=== PATIENT | male | born 1975 | race Caucasian/White ===

== ENCOUNTER 2016-11-21 04:48 | Emergency (ER) | payer BC, OTHER ==
[2016-11-21 05:00] VITALS: BP 123/61
--- NOTE | 2016-11-21 05:05 | EDM.PDOC ---
ED HPI GENERAL MEDICAL PROBLEM - General Chief Complaint: Upper Extremity Injury/Pain Stated Complaint: ARM AND ANKLE PAIN. TREE FELL ON HIM. WC Time Seen by Provider: 11/21/16 04:55 Source of Information: Reports: Patient History Limitations: Reports: No Limitations - History of Present Illness INITIAL COMMENTS - FREE TEXT/NARRATIVE: This 41 yo male patient reports to the ED with right elbow and right ankle pain. 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 The patient reports the tree hit him about 2 hours ago. The patient reports his ankle feels better now, but his elbow continues to be painful. Onset: Today Onset Date: 11/21/16 Onset Time: 03:00 Duration: Hour(s): (2), Constant Location: Reports: Upper Extremity, Right, Lower Extremity, Right Quality: Reports: Ache, Dull Severity: Moderate Improves with: Reports: Rest Worsens with: Reports: Movement Context: Reports: Trauma Associated Symptoms: Reports: No Other Symptoms - Related Data Allergies Allergy/AdvReac Type Severity Reaction Status Date / Time No Known Allergies Allergy Verified 11/21/16 05:02 Home Meds: Home Meds . [No Known Home Meds] 11/21/16 [History] Review of Systems - Review of Systems Review Of Systems: ROS reveals no pertinent complaints other than HPI. ED EXAM, GENERAL - Physical Exam Exam: See Below Exam Limited By: No Limitations General Appearance: Alert, WD/WN, Mild Distress Eye Exam: Bilateral Eye: EOMI, Normal Inspection, PERRL Ears: Normal External Exam, Normal Canal, Hearing Grossly Normal, Normal TMs Nose: Normal Inspection, Normal Mucosa, No Blood Throat/Mouth: Normal Inspection, Normal Lips, Normal Teeth, Normal Gums, Normal Oropharynx, Normal Voice, No Airway Compromise Head: Atraumatic, Normocephalic Neck: Normal Inspection, Supple, Non-Tender, Full Range of Motion Respiratory/Chest: No Respiratory Distress, Lungs Clear, Normal Breath Sounds, No Accessory Muscle Use, Chest Non-Tender Cardiovascular: Normal Peripheral Pulses, Regular Rate, Rhythm, No Edema, No Gallop, No JVD, No Murmur, No Rub GI/Abdominal: Normal Bowel Sounds, Soft, Non-Tender, No Organomegaly, No Distention, No Abnormal Bruit, No Mass (Male) Exam: Deferred Rectal (Males) Exam: Deferred Back Exam: Full Range of Motion Extremities: Limited Range of Motion (right elbow) Neurological: Alert, Oriented, CN II-XII Intact, Normal Cognition, Normal Gait, Normal Reflexes, No Motor/Sensory Deficits Psychiatric: Normal Affect, Normal Mood Skin Exam: Warm, Dry, Intact, Normal Color, No Rash Lymphatic: No Adenopathy Course - Vital Signs Last Recorded V/S: Last Vital Signs Temp 35.6 C 11/21/16 04:51 Pulse 79 11/21/16 04:51 Resp 17 11/21/16 04:51 BP 123/61 11/21/16 04:51 Pulse Ox 100 11/21/16 04:51 - Orders/Labs/Meds Orders: Active Orders 24 hr Category Date Time Status Elbow Min 3V Rt [CR] Urgent Exams 11/21/16 04:59 Ordered Departure - Departure Time of Disposition: 05:40 Disposition: Home, Self-Care 01 Condition: fair Clinical Impression: Strain of right elbow Qualifiers: Encounter type: initial encounter Qualified Code(s): S56.911A - Strain of unspecified muscles, fascia and tendons at forearm level, right arm, initial encounter Contusion of right elbow Qualifiers: Encounter type: initial encounter Qualified Code(s): S50.01XA - Contusion of right elbow, initial encounter - Discharge Information Instructions: Elbow Contusion, [id number] Forms: ED Department Discharge Care Plan Goals: The patient was advised of the examination and x-ray results during the visit. The patient was encouraged to rest, ice and elevate his right elbow over the next 24-48 hours. If the patient has any additional symptoms or concerns, the patient should follow-up with his primary care facility or return to the emergency department. - My Orders Last 24 Hours: My Active Orders 11/21/16 04:59 Elbow Min 3V Rt [CR] Urgent - Assessment/Plan Last 24 Hours: My Active Orders 11/21/16 04:59 Elbow Min 3V Rt [CR] Urgent
== END 2016-11-21 05:54 | disposition home or self-care (01) ==
LOC: DL.ED 04:48
DX: S56.911A Strain of unspecified muscles, fascia and tendons at forearm level, right arm, initial encounter (principal); S50.01XA Contusion of right elbow, initial encounter; W22.8XXA Striking against or struck by other objects, initial encounter; Y99.0 Civilian activity done for income or pay
CPT/HCPCS: 73080-RT; 99283

== ENCOUNTER 2019-06-12 20:46 | Emergency (ER) | payer BC, OTHER ==
[2019-06-12] MEDS ORDERED: Ondansetron 4 MG Tab.DIS PO ONE (20:47)
[2019-06-12 20:55] VITALS: BP 138/74; PULSE 119
[2019-06-12] MEDS ORDERED: Ondansetron 4 MG/2 ML SDV IV ONE (21:16)
[2019-06-12] MEDS ORDERED: Acetaminophen 325 MG Tab PO ONE (21:31)
--- NOTE | 2019-06-12 21:55 | EDM.PDOC ---
ED HPI GENERAL MEDICAL PROBLEM - General Chief Complaint: Head Injury Stated Complaint: SMACKED HIS HEAD ON THE ICE Time Seen by Provider: 06/12/19 20:50 Source of Information: Reports: Patient, Family, Other History Limitations: Reports: No Limitations - History of Present Illness INITIAL COMMENTS - FREE TEXT/NARRATIVE: ED per w/c at [employer], slipped on ice hit head loss of consciousness for about one minute. Cant remember falling now, c/o being dizzy. legs weak initially after fall. . Head Pain Score (Numeric/FACES): 7 - Related Data Allergies Allergy/AdvReac Type Severity Reaction Status Date / Time No Known Allergies Allergy Verified 06/12/19 20:55 Home Meds: Home Meds . [No Known Home Meds] 11/21/16 [History] Past Medical History - Past Health History Medical/Surgical History: Denies Medical/Surgical History - Past Surgical History GI Surgical History: Reports: Hernia Repair/Other Musculoskeletal Surgical History: Reports: Other (See Below) Other Musculoskeletal Surgeries/Procedures:: ACL repair Social & Family History - Family History Family Medical History: Noncontributory - Tobacco Use Smoking Status *Q: Never Smoker Second Hand Smoke Exposure: No - Caffeine Use Caffeine Use: Reports: None - Recreational Drug Use Recreational Drug Use: No - Living Situation & Occupation Occupation: Employed (works for [employer]) ED ROS GENERAL - Review of Systems Review Of Systems: Comprehensive ROS is negative, except as noted in HPI. ED EXAM, HEAD INJURY - Physical Exam Exam: See Below Exam Limited By: No Limitations General Appearance: Alert, No Apparent Distress, Obese Head: Normocephalic, Scalp Tenderness (right posterior parietal). No: Hinson's Sign, Raccoon Eyes Nexus Criteria: Altered Level of Consciousness. No: Posterior, Midline Cervical Tenderness, Evidence of Intoxication, Focal Neurological Deficit, Painful Distraction Injuries Eyes: Bilateral Eye: EOMI, PERRL (3) Ears: Normal External Exam Nose: Normal Inspection Throat/Mouth: Normal Inspection, Normal Lips, Normal Voice, Other (mild bilateral jaw tenderness greater right posterior mandible.) Neck: Non-Tender, Full Range of Motion Respiratory: No Respiratory Distress, Lungs Clear, Normal Breath Sounds Cardiovascular: Normal Peripheral Pulses, Regular Rate, Rhythm GI/Abdominal Exam: Normal Bowel Sounds, Soft Extremities: Normal Range of Motion Neurologic: Alert, Normal Mood/Affect, Oriented x 3 Skin: Normal Color, Warm/Dry - Nancy Coma Score Best Eye Response (Mcdade): (4) Open Spontaneously Best Verbal Response (Mcdade): (5) Oriented Best Motor Response (Mcdade): (6) Obeys Commands Course - Vital Signs Last Recorded V/S: Last Vital Signs Temp 97 F 06/12/19 20:51 Pulse 119 H 06/12/19 20:51 Resp 18 06/12/19 20:51 BP 138/74 06/12/19 20:51 Pulse Ox 93 L 06/12/19 20:51 - Orders/Labs/Meds Meds: Medications Discontinued Medications Generic Name Dose Route Start Last Admin Trade Name César PRN Reason Stop Dose Admin Acetaminophen 650 mg 06/12/19 21:31 06/12/19 21:36 Tylenol PO 06/12/19 21:32 650 mg NOW ONE Administration Ondansetron HCl 4 mg 06/12/19 21:16 06/12/19 21:23 Zofran IV 06/12/19 21:17 4 mg ONETIME ONE Administration Ondansetron HCl Confirm 06/12/19 21:57 Zofran Odt Administered 06/12/19 21:58 Dose 12 mg .ROUTE .STK-MED ONE - Radiology Interpretation Free Text/Narrative:: head CT negative Cervical Negative - Re-Assessments/Exams Free Text/Narrative Re-Assessment/Exam: 06/14/19 04:59 Emesis x1 upon return from CT. Slight dizziness with movement. Gait steady. Continues poor recall of incident. Conversation appropriate. Discharge instructions reviewed with and patient. Off work one week Recheck in clinic end of week, sooner if symptoms worsen. Departure - Departure Time of Disposition: 21:50 Disposition: Home, Self-Care 01 Condition: Good Clinical Impression: Concussion with less than 1 hour loss of consciousness - Discharge Information *PRESCRIPTION DRUG MONITORING PROGRAM REVIEWED*: Not Applicable *COPY OF PRESCRIPTION DRUG MONITORING REPORT IN PATIENT ROSE MARY: Not Applicable Instructions: Concussion, Adult, [id number], Head Injury, Adult, [id number] Referrals: Deena Ocasio [Primary Care Provider] - Forms: ED Department Discharge Additional Instructions: No work this week light activity, rest 24 -48 hours, slow advance light soft diet tylenol every 4-6 hours as needed for discomfort zofran 4mg ODT one every 4 hours as needed for nausea or vomiting head injury instructions clinic recheck or Wednesday Sepsis Event Note - Evaluation Sepsis Screening Result: No Definite Risk - Focused Exam Date Exam was Performed: 06/14/19 Time Exam was Performed: 04:55
[2019-06-12] MEDS ORDERED: Ondansetron 4 MG Tab.DIS ONE (21:57)
== END 2019-06-12 22:05 | disposition home or self-care (01) ==
LOC: DL.ED 20:46
DX: S06.0X9A Concussion with loss of consciousness of unspecified duration, initial encounter (principal); W00.0XXA Fall on same level due to ice and snow, initial encounter
CPT/HCPCS: 70450; 72125; 96374; 99284; A9270; J2405

== ENCOUNTER 2021-04-12 11:55 | Emergency (ER) | payer BC ==
[2021-04-12 12:14] VITALS: BP 138/82; PULSE 93
--- NOTE | 2021-04-12 13:18 | EDM.PDOC ---
Scribed by Mae Schofield 04/12/21 1317 for Elsie Starkey MD ED HPI GENERAL MEDICAL PROBLEM - General Chief Complaint: General Stated Complaint: SICK SINCE WED SOB JANETH [phone] Time Seen by Provider: 04/12/21 13:10 Source of Information: Reports: Patient, RN, RN Notes Reviewed History Limitations: Reports: No Limitations - History of Present Illness INITIAL COMMENTS - FREE TEXT/NARRATIVE: Patient is here with cold-liked symptoms that started 7 days ago. He reports cough, body aches, weakness and chills. He has not had his COVID vaccine. No known exposure to COVID. He doesn't feel that anything is helping. Symptoms have been constant, not better or worse. 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 - Related Data Allergies Allergy/AdvReac Type Severity Reaction Status Date / Time No Known Allergies Allergy Verified 04/12/21 12:14 Home Meds: Home Meds Ibuprofen 600 mg PO Q6H PRN 04/12/21 [History] Past Medical History - Past Health History Medical/Surgical History: Denies Medical/Surgical History - Infectious Disease History Infectious Disease History: Reports: None - Past Surgical History GI Surgical History: Reports: Hernia Repair/Other Musculoskeletal Surgical History: Reports: Other (See Below) Other Musculoskeletal Surgeries/Procedures:: ACL repair Social & Family History - Family History Family Medical History: No Pertinent Family History - Tobacco Use Tobacco Use Status *Q: Never Tobacco User - Caffeine Use Caffeine Use: Reports: None - Recreational Drug Use Recreational Drug Use: No - Living Situation & Occupation Occupation: Employed (works for [employer]) ED ROS GENERAL - Review of Systems Review Of Systems: Comprehensive ROS is negative, except as noted in HPI. ED EXAM, GENERAL - Physical Exam Exam: See Below Exam Limited By: No Limitations General Appearance: Alert, WD/WN, No Apparent Distress Eye Exam: Bilateral Eye: EOMI, Normal Inspection, PERRL Ears: Normal External Exam, Normal Canal, Hearing Grossly Normal, Normal TMs Nose: Normal Inspection, Normal Mucosa, No Blood Throat/Mouth: Normal Inspection, Normal Lips, Normal Teeth, Normal Gums, Normal Oropharynx, Normal Voice, No Airway Compromise Head: Atraumatic, Normocephalic Neck: Normal Inspection, Supple, Non-Tender, Full Range of Motion Respiratory/Chest: No Respiratory Distress, Lungs Clear, Normal Breath Sounds, No Accessory Muscle Use, Chest Non-Tender Cardiovascular: Normal Peripheral Pulses, Regular Rate, Rhythm, No Edema, No Gallop, No JVD, No Murmur, No Rub GI/Abdominal: Normal Bowel Sounds, Soft, Non-Tender, No Organomegaly, No Distention, No Abnormal Bruit, No Mass (Male) Exam: Deferred Rectal (Males) Exam: Deferred Back Exam: Normal Inspection, Full Range of Motion, NT Extremities: Normal Inspection, Normal Range of Motion, Non-Tender, Normal Capillary Refill, No Pedal Edema Neurological: Alert, Oriented, CN II-XII Intact, Normal Cognition, Normal Gait, Normal Reflexes, No Motor/Sensory Deficits Psychiatric: Normal Affect, Normal Mood Skin Exam: Warm, Dry, Intact, Normal Color, No Rash Course - Vital Signs Last Recorded V/S: Last Vital Signs Temp 98.5 F 04/12/21 12:09 Pulse 93 04/12/21 12:09 Resp 20 04/12/21 12:09 BP 138/82 04/12/21 12:09 Pulse Ox 98 04/12/21 12:09 - Orders/Labs/Meds Labs: Laboratory Tests 04/12/21 Range/Units 12:15 SARS-CoV-2 RNA (GENARO) Positive H (NEGATIVE) Departure - Departure Time of Disposition: 13:16 Disposition: Home, Self-Care 01 Condition: Good Clinical Impression: COVID - Discharge Information *PRESCRIPTION DRUG MONITORING PROGRAM REVIEWED*: Not Applicable *COPY OF PRESCRIPTION DRUG MONITORING REPORT IN PATIENT ROSE MARY: Not Applicable Instructions: Symptoms of COVID-19 - CDC (08/05/2020) Forms: ED Department Discharge Additional Instructions: Quarantine for CDC guidelines. Over the counter medications as needed for symptomatic relief. Sepsis Event Note (ED) - Evaluation Sepsis Screening Result: No Definite Risk - Focused Exam Vital Signs: Vital Signs Temp Pulse Resp BP Pulse Ox 04/12/21 12:09 98.5 F 93 20 138/82 98 I have read and agree with the documentation that has been completed regarding this visit. By signing this record, I attest that the documentation was completed in my physical presence and is an accurate record of the encounter.
== END 2021-04-12 13:24 | disposition home or self-care (01) ==
LOC: DL.ED 11:55
DX: U07.1 COVID-19 (principal)
CPT/HCPCS: 99284; U0002

== ENCOUNTER 2023-02-05 08:31 | Emergency (ER) | payer BC ==
[2023-02-05] MEDS ORDERED: Sodium Chloride 0.9% 10 ML Syringe FLUSH PRN (08:41)
[2023-02-05] MEDS ORDERED: Sodium Chloride 0.9% 1,000 ML IV ONE ×2 (08:42→09:35)
[2023-02-05] MEDS ORDERED: Acetaminophen 500 MG Tab PO ONE (08:44)
[2023-02-05 08:56] LABS: BASOPHILS PERCENT AUTO 0.1 % (0.0-1.0); HEMOGLOBIN 13.7 g/dL (14.0-18.0); MEAN CORPUSCULAR HEMOGLOBIN 30.9 pg (27.0-34.0); MEAN CORPUSCULAR HGB CONC 36.1 g/dL (33.0-35.0); MEAN CORPUSCULAR VOLUME 85.8 fL (80-100); MONOCYTES PERCENT AUTO 7.2 % (2-8); NEUTROPHILS PERCENT AUTO 77.7 % (42.2-75.2); PLATELET COUNT,PLT 231 10^3/uL (150-450); RED BLOOD CELL COUNT 4.43 10^6/uL (4.6-6.2)
[2023-02-05 09:21] LABS: A/G RATIO 1.2; ALBUMIN 3.8 g/dL (3.4-5.0); ANION GAP 13.4 mEq/L (7-13); BILIRUBIN TOTAL 1.7 mg/dL (0.2-1.0); BUN/CREATININE RATIO 9.5 (No establ ref range); CALCIUM 8.4 mg/dL (8.5-10.1); CREATININE 1.68 mg/dL (0.70-1.30); EST CRCL DRUG DOSING (CG) 60.3 mL/min; POTASSIUM,K 3.4 mmol/L (3.5-5.1); PROTEIN TOTAL,TP 7.1 g/dL (6.4-8.2)
[2023-02-05 11:10] VITALS: BP 136/82; PULSE 82
== END 2023-02-05 11:06 | disposition home or self-care (01) ==
LOC: DL.ED 08:31
DX: J11.1 Influenza due to unidentified influenza virus with other respiratory manifestations (principal); E86.0 Dehydration; Z86.16 Personal history of COVID-19
CPT/HCPCS: 36415; 71045; 80053; 85025; 96360; 96361; 99283; A9270; J7030; 99284; J3490